=== PATIENT | female | born 1995 ===

== ENCOUNTER 2021-05-10 04:55 | Inpatient (IN) | payer BC ==
[2021-05-10] MEDS ORDERED: Tranexamic Acid 1,000 MG in Sodium Chloride 0.9% 100 ML IV PRN (05:42)
[2021-05-10] MEDS ORDERED: Carboprost Tromethamine 250 MCG/1 ML Amp IM PRN (05:42)
[2021-05-10] MEDS ORDERED: Water For Irrigation,Sterile 1,000 ML Container IRR PRN (05:42)
[2021-05-10] MEDS ORDERED: Lidocaine 1% 50 ML MDV INJECT PRN (05:42)
[2021-05-10] MEDS ORDERED: Nalbuphine 10 MG/1 ML Vial IVPUSH PRN (05:42)
[2021-05-10] MEDS ORDERED: Ampicillin 2 GM in Sodium Chloride 0.9% 100 ML IV ONE (05:42)
[2021-05-10] MEDS ORDERED: Butorphanol 1 MG/ML SDV IVPUSH PRN (05:42)
[2021-05-10] MEDS ORDERED: Methylergonovine 0.2 MG/1 ML Amp IM PRN (05:42)
[2021-05-10] MEDS ORDERED: Sodium Chloride 0.9% 20 ML SDV IV PRN (05:42)
[2021-05-10] MEDS ORDERED: Misoprostol 200 MCG Tab PO PRN (05:42)
[2021-05-10] MEDS ORDERED: Sodium Chloride 0.9% 10 ML Syringe FLUSH PRN (05:42)
[2021-05-10] MEDS ORDERED: Sodium Chloride 0.9% 2.5 ML Syringe FLUSH PRN (05:42)
[2021-05-10] MEDS ORDERED: Betamethasone Acetate/Betamethasone Sod Phosphate 30 MG/5 ML MDV IM SCH (05:45)
[2021-05-10] MEDS ORDERED: Oxytocin/0.9 % Sodium Chloride 30 UNIT/500 ML BAG IV SCH ×2 (05:45→09:30)
[2021-05-10] MEDS: Lactated Ringers 1,000 ML IV SCH ×3 (06:15→16:40)
[2021-05-10] MEDS ORDERED: Terbutaline 1 MG/ML SDV SUBCUT PRN (09:17)
[2021-05-10] MEDS: Ampicillin 1 GM in Sodium Chloride 0.9% 50 ML IV SCH ×4 (10:56→23:19)
[2021-05-10] MEDS ORDERED: ePHEDrine 50 MG/ML SDV IVPUSH PRN ×2 (15:17)
[2021-05-10] MEDS ORDERED: Ropivacaine HCl/PF 100 ML ONE (15:25)
[2021-05-10] MEDS ORDERED: Ropivacaine HCl/PF 200 MG in Premix Bag 1 BAG EPIDUR SCH (15:30)
[2021-05-10] MEDS ORDERED: Ondansetron 4 MG/2 ML SDV IVPUSH PRN (20:58)
[2021-05-11] MEDS ORDERED: Witch Hazel Medicated Pads 40/Jar TOP PRN (00:35)
[2021-05-11] MEDS ORDERED: oxyCODONE 5 MG Tab PO PRN (00:35)
[2021-05-11] MEDS ORDERED: Bisacodyl 10 MG Supp RECTAL PRN (00:35)
[2021-05-11] MEDS ORDERED: Benzocaine/Menthol 20%-0.5% Spray 78 GM Cannister TOP PRN (00:35)
[2021-05-11] MEDS ORDERED: Ibuprofen 400 MG Tab PO PRN (00:35)
[2021-05-11] MEDS ORDERED: Lanolin 100% Cream 7 GM Tube TOP PRN (00:35)
[2021-05-11] MEDS ORDERED: Acetaminophen 500 MG Tab PO PRN (00:35)
[2021-05-11] MEDS: Ibuprofen 800 MG Tab PO PRN ×4 (01:54→22:59)
[2021-05-11] MEDS: Acetaminophen 500 MG Tab PO PRN ×3 (08:18→22:59)
[2021-05-11] MEDS: Docusate Sodium 100 MG Cap PO PRN ×2 (08:19→20:19)
[2021-05-12] MEDS: Acetaminophen 500 MG Tab PO PRN ×2 (07:31→20:48)
[2021-05-12] MEDS: Docusate Sodium 100 MG Cap PO PRN ×2 (07:32→20:48)
[2021-05-12] MEDS: Ibuprofen 800 MG Tab PO PRN ×2 (12:17→23:55)
== END 2021-05-12 23:59 | disposition home or self-care (01) | DRG 560 ==
LOC: MW.OBCHECK 04:55 → MW.OB 05:03 → UNDOADMOB 05:03 → MW.OB 05:42 → OBSVTOIN 23:59 → MW.OB 05-11 03:23
PROVIDERS: ADMIT Obstetrics & Gynecology; ATTEND Obstetrics & Gynecology
PROC: 10D07Z6 Extraction of Products of Conception, Vacuum, Via Natural or Artificial Opening (ICD-10-PCS; principal; 2021-05-10)
PROC: 0HQ9XZZ Repair Perineum Skin, External Approach (ICD-10-PCS; 2021-05-10)
PROC: 0UQMXZZ Repair Vulva, External Approach (ICD-10-PCS; 2021-05-10)
PROC: 3E0R3BZ Introduction of Anesthetic Agent into Spinal Canal, Percutaneous Approach (ICD-10-PCS; 2021-05-10)
PROC: 00HU33Z Insertion of Infusion Device into Spinal Canal, Percutaneous Approach (ICD-10-PCS; 2021-05-10)
PROC: 3E0234Z Introduction of Serum, Toxoid and Vaccine into Muscle, Percutaneous Approach (ICD-10-PCS; 2021-05-11)
DX: O42.013 Preterm premature rupture of membranes, onset of labor within 24 hours of rupture, third trimester (principal); Z37.0 Single live birth; Z3A.35 35 weeks gestation of pregnancy; O77.0 Labor and delivery complicated by meconium in amniotic fluid; O70.0 First degree perineal laceration during delivery; O99.12 Other diseases of the blood and blood-forming organs and certain disorders involving the immune mechanism complicating childbirth; D69.6 Thrombocytopenia, unspecified; Z20.822 Contact with and (suspected) exposure to COVID-19; O26.893 Other specified pregnancy related conditions, third trimester; Z86.16 Personal history of COVID-19; Z67.21 Type B blood, Rh negative
CPT/HCPCS: 01967; 36415; 36430; 51701; 51702; 59025; 59409; 81003; 82803; 84112; 85027; 85460; 86592; 86850; 86900; 86901; 87653; A9270-GY; J0290; J0702; J2405; J2590; J2790; J2795; J7120; U0002